=== PATIENT | male | born 1975 | race Asian ===

== ENCOUNTER 2016-07-19 14:55 | Emergency (ER) | payer MEDICAID ==
[2016-07-19] MEDS ORDERED: CYCLOBENZAPRINE 10 MG TABLET PO ONE (16:48)
[2016-07-19] MEDS ORDERED: LIDOCAINE PATCH 5% TOP ONE (16:48)
[2016-07-19] MEDS ORDERED: IBUPROFEN 400 MG TABLET PO ONE (16:48)
== END 2016-07-19 19:28 | disposition home or self-care (01) ==
DX: S46.911A Strain of unspecified muscle, fascia and tendon at shoulder and upper arm level, right arm, initial encounter (principal); X58.XXXA Exposure to other specified factors, initial encounter; M67.431 Ganglion, right wrist
CPT/HCPCS: 73030; 99282; 99283; A9270